=== PATIENT | male | born 1955 | race Caucasian/White ===

== ENCOUNTER 2017-06-26 12:12 | Emergency (ER) | payer BC ==
[2017-06-26 12:27] VITALS: BP 123/68
--- NOTE | 2017-06-26 13:32 | ED ---
Throat Pain/Nasal Congestion - HPI Summary HPI Summary: 61 yo WM c/o right upper lid pain, swelling and redness x 2 days, no other complaint - History of Current Complaint Chief Complaint: UCEye Time Seen by Provider: 06/26/17 12:56 - Allergies/Home Medications Allergies/Adverse Reactions: Allergies Allergy/AdvReac Type Severity Reaction Status Date / Time No Known Allergies Allergy Verified 06/26/17 12:28 PMH/Surg Hx/FS Hx/Imm Hx Previously Healthy: Yes Infectious Disease History: No Infectious Disease History: Denies: Traveled Outside the [place] in Last 30 Days - Social History Alcohol Use: Occasionally Substance Use Type: Reports: None Smoking Status (MU): Never Smoked Tobacco Review of Systems Constitutional: Negative Positive: Erythema - right inner upper lid swelling and pain ENT: Negative Cardiovascular: Negative Respiratory: Negative Gastrointestinal: Negative Genitourinary: Negative Musculoskeletal: Negative Neurological: Negative Psychological: Normal All Other Systems Reviewed And Are Negative: Yes Physical Exam Triage Information Reviewed: Yes Vital Signs On Initial Exam: Initial Vitals Temp Pulse Resp BP Pulse Ox 36.3 C 76 16 123/68 100 06/26/17 12:25 06/26/17 12:25 06/26/17 12:25 06/26/17 12:25 06/26/17 12:25 Vital Signs Reviewed: Yes Appearance: Positive: No Pain Distress Skin: Positive: Warm Eyes: Positive: Conjunctiva Clear, Other: - right upper lid swelling and erythma , internal stye, no drainage seen ENT: Positive: Normal ENT inspection Neck: Positive: Supple Cardiovascular: Positive: Normal, S1, S2 Musculoskeletal: Positive: Normal Neurological: Positive: Normal Diagnostics - Vital Signs Vital Signs Temp Pulse Resp BP Pulse Ox 06/26/17 12:25 36.3 C 76 16 123/68 100 - Laboratory Lab Statement: Any lab studies that have been ordered have been reviewed, and results considered in the medical decision making process. EENT Course/Dx - Diagnoses Provider Diagnoses: Sty, internal Discharge - Sign-Out/Discharge Documenting (check all that apply): Discharge/Admit/Transfer - Discharge Plan Condition: Stable Disposition: HOME Prescriptions: Neomycin/Polymyxin B/Dexametha [Maxitrol] 1 oin OP TID 10 Days #1 tube Patient Education Materials: [facility] (ED) Referrals: Ernie Gunter MD [Primary Care Provider] - - Billing Disposition and Condition Condition: STABLE Disposition: HOME
== END 2017-06-26 13:36 | disposition home or self-care (01) ==
LOC: UCEAST 12:12
DX: H00.021 Hordeolum internum right upper eyelid (principal)
CPT/HCPCS: 99212; G0463